=== PATIENT | male | born 1980 | race Caucasian/White ===

== ENCOUNTER 2025-04-03 10:21 | Emergency (ER) | payer OTHER, SELFPAY ==
[2025-04-03 10:26] VITALS: BP 153/119; PULSE 109; RESP 16; TEMP 37.4; O2SAT 98
--- OUTSIDE RECORDS SUMMARY | 2025-04-03 10:34 | XMS_ITS | Clinical Summary ---
Author Organization [facility] Address [address] [place] [id number] Phone Care Team Providers Care Line Director Name Role Phone Lee Marroquin MD Primary Care Provider [phone] Allergies Active Allergy Reactions Criticality Noted Date Comments Amoxicillin Rash Medium 07/15/2022 pt gets rash, has tolerated other penicillins Medications No known medications Active Problems Problem Noted Date Diagnosed Date Family history of prostate c ancer in father (50s, aggressive) 03/19/2024 NILSA on CPAP 03/19/2024 Morbid obesity with body mass index of 40.0-49.9 03/19/2024 Resolved Problems Problem Noted Date Diagnosed Date Resolved Date Choledocholithiasis 01/24/2024 03/19/20 24 Elevated LFTs 01/24/2024 03/19/2024 Encounters Date Type Department Care Team Description 03/05/2025 External Device Data [facility] ABSTRACTION Provider, Abstract 03/01/2025 Lab Requisition [facility] General Laboratory Services [facility] [address] [place] [address] Blaire Kulkarni, 02/19/2025 External Device Data [facility] ABSTRACTION Provider, Abstract 02/06/2025 External Device Data [facility] ABSTRACTION Provider, Abstract 01/23/2025 External Device Data [facility] ABSTRACTION Provider, Abstract 01/15/2025 External Device Data [facility] ABSTRACTION Provider, Abstract 01/08/2025 External Device Data [facility] ABSTRACTION Provider, Abstract 01/08/2025 External Device Data [facility] ABSTRACTION Provider, Abstract from Last 3 Months Immunizations Immunization Administration Dates Next Due Influenza Seasonal Unspecifi ed Formulation IM 01/09/2025,01/20/2024,12/17/2022 Family History Medical History Relation Name Comments Prostate Cancer Father Relation Name Status Comments Father Social History Tobacco Use Types Packs/Day Years Used Date Smoking Tobacco: Never Tobacco Cessation:Counseling Given: Not Answered Alcohol Use Standard Drinks/Week Comments Yes 0 (1 standard drink = 0.6 oz pur e alcohol) Feeling Safe Answer Date Recorded Are you in a relationship wi th someone who hurts you emotionally and/or physically? No 01/24/2024 Food Insecurity Answer Date Recorded Patient needs follow up regardin 08/09/2024 Transportation Needs Answer Date Record ed Patient needs follow up regardin 08/09/2024 Housing Stability Answer Date Recorded Social/Environmental Concerns No concerns Utility Needs Answer Date Recorded Patient needs follow up regardin 08/09/2024 Sex and Gender Information Value Date Recorded Sex Assigned at Not on file Legal Sex Male 2:24 PM CDT Gender Identity Not on file Sexual Orientation Not on file Last Filed Vital Signs Vital Sign Reading Time Taken Comments Blood Pressure 138/96 03/19/2024 8:31 AM PATIENT REPRESENTATIVE Pulse 82 03/19/2024 8:29 AM PATIENT REPRESENTATIVE Temperature 36.7 C (98.1 F) 03/19/2024 8:29 AM PATIENT REPRESENTATIVE Respiratory Rate 15 01/25/2024 5:00 AM CDT Oxygen Saturation 98% 03/19/2024 8:29 AM PATIENT REPRESENTATIVE Inhaled Oxygen Concentration - - Weight 119.7 kg (264 lb) 03/19/2024 8:29 AM PATIENT REPRESENTATIVE Height 170.2 cm (5' 7) 03/19/2024 8:29 AM PATIENT REPRESENTATIVE Body Mass Index 41.35 03/19/2024 8:29 AM PATIENT REPRESENTATIVE Plan of Treatment Health Maintenance Due Date Last Done Comments Pre-Diabetes and Diabetes Screening 1980 DTAP/TDAP/TD VACCINES (1 - Tdap) 02/04/1999 HEPATITIS B VACCINES (1 of 3 - 19+ 3-dose series) 02/04/1999 COVID-19 Vaccine ( season) 12/03/202401/2021, 03/26/2020 COLORECTAL SCREENING 02/04/2025 Colorectal Cancer Screening 02/04/2025 FIT-DNA Q 3 years 02/04/2025 FIT/FOBT Q 1 year 02/04/2025 Flex Sig/CT Colonography Q 5 years 02/04/2025 INFLUENZA VACCINE Completed 01/09/2025, , 12/17/2022 HPV VACCINES (No Doses Required) Completed Procedures Procedure Name Priority Date/Time Associated Diagnosis Comments EXPOSURE PANEL COMPLETION Stat 03/01/2025 10:30 AM PATIENT REPRESENTATIVE HEPATITIS C ANTIBODY Stat 03/01/2025 10:30 AM PATIENT REPRESENTATIVE HIV DETECTION W/REFLX CONFIRMATION Stat 03/01/2025 10:30 AM PATIENT REPRESENTATIVE EXPOSED NEEDLESTICK PANEL Stat 03/01/2025 10:30 AM PATIENT REPRESENTATIVE from Last 3 Months Results * EXPOSURE PANEL COMPLETION (03/01/2025 10:30 AM PATIENT REPRESENTATIVE) Pathologist [facility] [place] EXPOSURE PANEL RECEIVED Yes 03/01/2025 12:19 PM PATIENT REPRESENTATIVE [facility] Blood Collection / Unknown 03/01/2025 10:30 AM PATIENT REPRESENTATIVE 03/01/2025 11:24 AM PATIENT REPRESENTATIVE Blaire Kulkarni DO CHEMISTRY ORDERABLES Final Result [facility]# [id number] [address] [facility] [address] * HIV DETECTION W/REFLX CONFIRMATION (03/01/2025 10:30 AM PATIENT REPRESENTATIVE) HIV-1 AND 2 ABS AND HIV-1 AG Non-reacti ve Non-reacti ve 03/01/2025 12:19 PM PATIENT REPRESENTATIVE [facility] Blood Collection / Unknown 03/01/2025 10:30 AM PATIENT REPRESENTATIVE 03/01/2025 11:24 AM PATIENT REPRESENTATIVE Blaire Kulkarni DO CHEMISTRY ORDERABLES Final Result [facility] Mobile Location, IP [facility]# [id number] [address] [place] [address] * HEPATITIS C ANTIBODY W REFLEX (03/01/2025 10:30 AM PATIENT REPRESENTATIVE) HEPATITIS C AB NON-REACT RAY Non-react ray 03/01/2025 12:11 PM PATIENT REPRESENTATIVE [facility] Mobile Location, IP [facility] Comment:Antibodies to HCV we re not detected, does not exclude the possibility of exposure to HCV. Blood Collection / Unknown 03/01/2025 10:30 AM PATIENT REPRESENTATIVE 03/01/2025 11:24 AM PATIENT REPRESENTATIVE Blaire Kulkarni DO CHEMISTRY ORDERABLES Final Result Performing Organization Address [facility] Co de Phone Number [facility] Mobile Location, IP [facility] [id number] [address] [place] [address] from Last [address] [facility] Member Subscriber Plan / Payer (Ef fective for All Dates) Name:Ethan Fabian Relation to Subscriber:Not on file Name:Ethan Fabian Subscriber ID:Not on file Date of :1980 Payer ID:Not on file Group ID:[id number] Type:RX Commercial Address: [facility] EPO Advance Directives For more information, please contact: [phone] * Full Code (Latest Code Status on File) Date Activated Date Inactivated Comments 01/24/2024 3:14 AM 01/25/2024 2:00 PM Care Teams Line Director Relationship Specialty [place] [address] [place] [id number] PCP - General Family Practice 03/19/24
--- OUTSIDE RECORDS SUMMARY | 2025-04-03 10:34 | XMS_ITS | Encounter Summary ---
Author Organization [facility] Address [address] [place] [address] Care Team Providers Care Sub Prior Name Role Phone Lee Marroquin MD Primary Care Provider [phone] Encounter Details Date Type Department Care Team (Late st Contact Info) Description 03/01/2025 Lab Requisition [facility] Laboratory Services [address] [facility] [address] [facility] [place] [address] [place] [address] [place] [address] Social History Tobacco Use Types Packs/Day Years Used Date Smoking Tobacco: Never Alcohol Use Standard Drinks/Week Comments Yes 0 [...] on file Sexual Orientation Not on file documented as of this encounter Plan of Treatment Not on file documented as of this encounter Procedures Procedure Name Priority Date/Time Associated Diagnosis Comments EXPOSURE PANEL COMPLETION Stat 03/01/2025 10:30 AM STAFF DEVELOPMENT COORDINATOR EXPOSED NEEDLESTICK PANEL Stat 03/01/2025 10:30 AM STAFF DEVELOPMENT COORDINATOR HIV DETECTION W/REFLX CONFIRMATION Stat 03/01/2025 10:30 AM STAFF DEVELOPMENT COORDINATOR HEPATITIS C ANTIBODY Stat 03/01/2025 10:30 AM STAFF DEVELOPMENT COORDINATOR documented in this encounter Results * EXPOSURE PANEL COMPLETION (03/01/2025 10:30 AM STAFF DEVELOPMENT COORDINATOR) Pathologist [facility] EXPOSURE PANEL RECEIVED Yes 03/01/2025 12:19 PM STAFF DEVELOPMENT COORDINATOR [facility] Blood Collection / Unknown 03/01/2025 10:30 AM STAFF DEVELOPMENT COORDINATOR 03/01/2025 11:24 AM STAFF DEVELOPMENT COORDINATOR Blaire Kulkarni DO CHEMISTRY ORDERABLES Final Result [facility] CLIA# [id number] [address] [place] [address] * HEPATITIS C ANTIBODY W REFLEX (03/01/2025 10:30 AM STAFF DEVELOPMENT COORDINATOR) [facility] HEPATITIS C AB NON-REACT DEMETRIO Non-react demetroi 03/01/2025 12:11 PM STAFF DEVELOPMENT COORDINATOR [facility] Comment:Antibodies to HCV we re not detected, does not exclude the possibility of exposure to HCV. Blood Collection / Unknown 03/01/2025 10:30 AM STAFF DEVELOPMENT COORDINATOR 03/01/2025 11:24 AM STAFF DEVELOPMENT COORDINATOR Blaire Kulkarni DO CHEMISTRY ORDERABLES Final Result [facility] CLIA# [id number] [address] [place] [address] * HIV DETECTION W/REFLX CONFIRMATION (03/01/2025 10:30 AM STAFF DEVELOPMENT COORDINATOR) HIV-1 AND 2 ABS AND HIV-1 AG Non-reacti ve Non-reacti ve 03/01/2025 12:19 PM STAFF DEVELOPMENT COORDINATOR [facility] Blood Collection / Unknown 03/01/2025 10:30 AM STAFF DEVELOPMENT COORDINATOR 03/01/2025 11:24 AM STAFF DEVELOPMENT COORDINATOR Blaire Kulkarni DO CHEMISTRY ORDERABLES Final Result [facility] CLIA# [id number] [address] [place], [place] [id number] documented in this encounter Visit Diagnoses Not on filedocumented in this encounter Care Teams Sub Prior Relationship Specialty [place] [address] [place] [address] PCP - General Family Practice 03/19/24 documented as of this encounter
--- NOTE | 2025-04-03 10:59 | ED_ITS ---
HPI - Female Genitourinary General Chief complaint: Urogenital-Male Stated complaint: poss uti Time Seen by Provider: 04/03/25 10:50 Source: patient and RN notes reviewed Mode of arrival: ambulatory Limitations: no limitations History of Present Illness HPI Narrative: 45-year-old male patient presents today complaining of a cloudy urine, lower abdominal pressure, urinary frequency since last night with some hematuria this morning some mild back pain. Denies fever, nausea or vomiting. Reports history of kidney stones and this does not feel similar. Patient has no concerns for sexually transmitted infections. Related Data Allergies Allergy/AdvReac Type Severity Reaction Status Date / Time amoxicillin Allergy Intermediate Hives Verified 04/03/25 10:37 [facility] Past Medical History Medical History (Updated 04/03/25 @ 11:03 by Yenni Mishra, ANY, CARDIAC CATH RN) Hypertension History of kidney stones Comments At time of signature, I have reviewed and agree with nursing past medical, surgical, social and family history unless otherwise noted. Please see nursing chart for further information. There is no relevant family history pertinent to the presenting complaint Exam Narrative: GENERAL: Well-appearing, well-nourished, and in no acute distress. HEAD: Normocephalic, atraumatic. EYES: EOMI. No redness or drainage. Conjunctivae normal. ENT: Mucous membranes pink and moist. NECK: Normal AROM. CHEST: No respiratory distress. Clear to auscultation. HEART: Regular rate and rhythm. No murmur appreciated. ABDOMEN: Soft, nontender, nondistended, normal active bowel sounds. -CVAT EXTREMITIES: Normal range of motion. No edema. SKIN: Warm, dry, no rash. Capillary refill normal. Normal skin turgor. NEURO: No focal deficits. Alert and oriented x3. Gait steady. PSYCH: Normal affect. No signs of depression or anxiety. Course Course Level of Care: Express Care Visit Vital Signs Vital signs: Vital Signs Temperature 99.4 F 04/03/25 10:26 Pulse Rate 109 H 04/03/25 10:26 Respiratory Rate 16 04/03/25 10:26 Blood Pressure 153/119 H 04/03/25 10:26 Pulse Oximetry 98 04/03/25 10:26 Oxygen Delivery Room Air 04/03/25 10:26 Temperature 99.4 F 04/03/25 10:26 Pulse Rate 109 H 04/03/25 10:26 Respiratory Rate 16 04/03/25 10:26 Blood Pressure 162/82 H 04/03/25 11:03 Pulse Oximetry 98 04/03/25 10:26 Oxygen Delivery Room Air 04/03/25 10:26 Reviewed [facility] Narrative Medical decision making narrative: 45-year-old male patient presents today complaining of a cloudy urine, lower abdominal pressure, urinary frequency since last night with some hematuria this morning some mild back pain. Denies fever, nausea or vomiting. Reports history of kidney stones and this does not feel similar. No concerns for sexually transmitted infections. Normal physical exam. Urinalysis shows 3+ blood, 3+ protein, positive nitrites, 1+ leukocytes. Will treat patient for UTI with Keflex. Culture pending. Patient agrees with plan. Vital signs stable. Anticipatory guidance given. Differential Diagnosis Differential Diagnosis: UTI, kidney stone, pyelonephritis Lab Data [facility] Lab Attestation statement: I personally reviewed the patient's lab results. Labs: Lab Results 04/03/25 Range/Units 11:01 POC Urine Color Tea colored POC Urine Clarity Cloudy POC Urine pH 6.0 POC Ur Specif [place] 1.030 POC Urine Protein 3+ (Negative) POC Ur Glucose (UA) Negative (Negative) POC Urine Ketones Negative (Negative) POC Urine Blood 3+ (Negative) POC Urine Nitrite Positive (Negative) POC Urine Bilirubin Negative (Negative) POC Urine Urobilinogen 0.2 POC U Leukocyte [place]ster[place] 1+ (Negative) Critical Care Time Critical Care Time Critical Care Time: No Discharge Plan Discharge Clinical Impression: Urinary tract infection Qualifiers: Urinary tract infection type: acute cystitis Hematuria presence: with hematuria Qualified Code(s): N30.01 - Acute cystitis with hematuria Patient Disposition: Home Condition: Stable Instructions: Antibiotic Form, Urinary Tract Infection in Men (DC) Additional Instructions: Your urine shows infection today. Take Keflex as prescribed until gone. Your urine will be sent of for a culture to identify what type of bacteria is causing your infection. If the culture shows that your medication will not get rid of your infection, you will be notified and a new antibiotic will be called in for you. If your symptoms worsen to include fever, sweats, chills, nausea, vomiting, severe abdominal or back pain, please go to the ER for further evaluation. Patient Language: Japanese Prescriptions: New cephalexin 500 mg capsule 500 mg PO BID 7 Days Qty: 14 0RF Follow-up/Referrals: PHYSICIAN NOT ON STAFF,NONSTAFF [Primary Care Provider] Time of Disposition: 11:04
[2025-04-03 11:03] VITALS: BP 162/82
[2025-04-03 11:04] LABS: EDUAAPPEAR Cloudy; EDUABILI Negative (Negative); EDUABLOOD 3+ (Negative); EDUACOLOR1 Tea Colored; EDUAGLUCOSE Negative (Negative); EDUAKETONE Negative (Negative); EDUALEUKO 1+ (Negative); EDUANITRATE Positive (Negative); EDUAPH 6.0; EDUAPROTEIN 3+ (Negative); EDUASPGRAVITY 1.030; EDUAUROBILI 0.2
== END 2025-04-03 11:08 | disposition home or self-care (01) ==
PROVIDERS: Emergency Provider Nurse Practitioner
DX: N30.01 Acute cystitis with hematuria (principal); I10 Essential (primary) hypertension; Z87.442 Personal history of urinary calculi
CPT/HCPCS: 81003; 87077; 87086; 87186; 99203; G0463